=== PATIENT | female | born 1995 | race Caucasian/White ===

== ENCOUNTER 2018-11-28 09:03 | Emergency (ER) | payer SELFPAY ==
[2018-11-28 09:08] VITALS: BP 155/94; PULSE 94; TEMP 37; O2SAT 100
--- NOTE | 2018-11-28 09:20 | W.ED.GENAD ---
Discharge Plan Disposition Patient Disposition: HOME Condition: Good Discharge Details Chief Complaint: Urinary Clinical Impression: UTI (urinary tract infection), Acute ear infection Primary Care Provider: Carolyn Nobles ED Provider: Kimberly Quintana Home Meds and New Rx's Prescriptions: New Cortisporin-TC 3.3-3-10-0.5 mg/mL drops,suspension 4 drp OT TID Qty: 10 RF: 0 amoxicillin-pot clavulanate [Augmentin] 875-125 mg tablet 1 tab PO BID Qty: 10 RF: 0 phenazopyridine [Pyridium] 200 mg tablet 200 mg PO TID Qty: 6 RF: 0 No Action buprenorphine HCl 2 MG tablet, sublingual 8 mg Sublingual DAILY Qty: 1 RF: 0 Discharge Instructions Instructions: Urinary Tract Infection in Women (ED) Additional Instructions: Push fluids by mouth. Rest activities as tolerated. Use antibiotics as prescribed. Use drops into the ear as prescribed. Observe for any worsening symptoms. Repeat urine culture with your doctor for follow-up. Call for follow-up appointment with PCP. Tylenol for soreness if needed. Use Pyridium as prescribed this will stay in your urine a reddish-orange. Return for any worsening or concerns sooner if needed Medical Decision Making Patient with both urinary tract symptoms as well as left ear symptoms. Patient does report drainage from the ear yesterday however ear on exam does not have any significant wax may have been a wax plug which was removed yesterday. Mild pain with tragus tug therefore will give topical antibiotic treatment as well as oral antibiotic treatment. Patient also complaining of urinary tract symptoms urine analysis does reveal leukocyte esterase. Will treat with Augmentin to both cover urine and ear. Patient agrees a plan of care. Pyridium prescribed for comfort. Patient is not ill-appearing at this time. Urine culture pending. Encourage follow-up with PCP. HPI General Date/Time Provider Initiated Documentation: 11/28/18 09:07. HPI Narrative: Patient presents for 2 complaints. Patient complaining of left ear pain and removed a plug of what looked like wax yesterday. Patient reports persistent ear pain since. Used hydrogen peroxide to clean ear. Patient denies nasal congestion sore throat or cough. Patient denies fever chills. Patient does report mild malaise. Second complaint is urinary burning, urgency, frequency and discomfort. Patient noted onset urinary symptoms approximately 5 days ago. Denies abdominal or back pain. Denies vaginal discharge or bleeding. Denies any other concerning complaint. No difficulty pushing fluids by mouth. Related Data Home Medications Medication Instructions Recorded Confirmed buprenorphine HCl 8 mg SUBLINGUAL DAILY #1 tab NS 10/31/12 11/28/18 amoxicillin-pot clavulanate 1 tab PO BID #10 tab 11/28/18 [Augmentin] [id number]-gagtwl-[id number]-thonzonium 4 drp OT TID #10 ml 11/28/18 [Cortisporin-TC] phenazopyridine [Pyridium] 200 mg PO TID #6 tab 11/28/18 Previous Rx's Medication Instructions Recorded amoxicillin-pot clavulanate 1 tab PO BID #10 tab 11/28/18 [Augmentin] [id number]-fhohlb-SL-thonzonium 4 drp OT TID #10 ml 11/28/18 [Cortisporin-TC] phenazopyridine [Pyridium] 200 mg PO TID #6 tab 11/28/18 Allergies Allergy/AdvReac Type Severity Reaction Status Date / Time No Known Allergies Allergy Unverified 11/28/18 09:12 General Stated Complaint: GenMedical BYRON: 4 Review of Systems Review of Systems Narrative: CONSTITUTIONAL: The patient denies fevers, chills. EYES: Denies vision changes, blurry vision, or eye pain. ENT: Denies hearing changes, tinnitus, vertigo, sore throat. CARDIAC: Denies chest pain, SOB. RESPIRATORY: Denies cough, sputum. Denies difficulty breathing. GASTROINTESTINAL: Denies abdominal pain, changes in bowel, vomiting or nausea. GENITOURINARY: Dysuria, urgency and frequency. Denies hematuria.. MUSCULOSKELETAL: Denies Joint pain, gait changes. NEUROLOGIC: Denies headaches, Denies focal weakness. Denies numbness. INTEGUMENT: Denies rashes. PSYCHIATRIC: Denies behavior changes. Denies anxiety or depression. ENDOCRINOLOGY: Denies fatigue. PSYCHIATRY: Denies depression, agitation or anxiety [facility] Social History Smoking/Tobacco Use Status: Current every day Tobacco Type: cigarettes Drug use: Current Sobriety Substance use type: does not use and former substance user Do you feel safe at home: Yes Do you feel safe in your relationship?: Yes Exam Narrative Exam Narrative: CONST: Healthy appearing patient, in no acute distress. Well hydrated. Alert and alert. HENMT: Head nomocephalic, normal to inspection. Atraumatic. Hearing grossly normal. Patient with mild pain with tragus tug. Mild erythema in the canal. TM with erythema inferiorly. No significant bulging. EYES: General normal appearance. Alignment normal. Eyelids normal. Conjunctiva normal. NECK: Normal visual inspection. FROM. Trachea midline. No Midline tenderness. CHEST: Normal insepection of the chest. RESP: Normal respiratory effort. Speaking full sentences. No cough. No audible wheezing. No retractions. CARDIO: No JVD. Abdomen; no abdominal pain with palpation. No rebound or guarding. Back; No CVA tenderness MUSCULOSKELETAL: Normal Gait. FROM of all extremities. SKIN: Normal. Dry. No rashes. NEURO: Alert and awake. Speech clear. PSYCH: Normal affect. Cooperative. Course Vital Signs Vital signs: Vital Signs Temperature 37.0 C 11/28/18 09:08 Pulse 94 H 11/28/18 09:08 Blood Pressure 155/94 H 11/28/18 09:08 Pulse Oximetry 100 11/28/18 09:08 Temperature 37.0 C 11/28/18 09:08 Temperature Source Skin 11/28/18 09:08 Pulse 94 H 11/28/18 09:08 Respiratory Effort Non-Labored 11/28/18 09:10 Blood Pressure 155/94 H 11/28/18 09:08 Blood Pressure Position Sitting 11/28/18 09:08 Pulse Oximetry 100 11/28/18 09:08 Oxygen Delivery Method Room Air 11/28/18 09:08 Oxygen Flow Rate 0 11/28/18 09:08
[2018-11-28 09:31] LABS: Bilirubin Negative (Negative); Blood Moderate (Negative); Glucose Negative (Negative); Ketones Negative (Negative); Leukocyte Esterase Large (Negative); Nitrite Negative (Negative); Specific Gravity 1.015 (1.005-1.025); Urobilinogen 0.2 EU/dL (Up TO 0.2)
[2018-11-28 09:33] LABS: Clarity Cloudy (Clear)
[2018-11-28 09:42] LABS: Bacteria Moderate HPF (Negative); C & S Indicated? Yes; Casts Negative LPF (Negative); Crystals Negative HPF (Negative); Epithelial Cells Moderate HPF (Negative); Mucus Negative (Negative); WBC >50 HPF (0-5)
[2018-11-28 10:33] VITALS: BP 155/94; PULSE 94; RESP 16; TEMP 37; O2SAT 100
== END 2018-11-28 10:30 | disposition home or self-care (01) ==
PROVIDERS: Emergency Provider Physician Assistant; PCP Family Medicine
DX: N39.0 Urinary tract infection, site not specified (principal); H66.92 Otitis media, unspecified, left ear; H60.502 Unspecified acute noninfective otitis externa, left ear
CPT/HCPCS: 81025; 87077; 99283; 81003; 81015; 87086; 87186

== ENCOUNTER 2020-06-29 16:51 | Emergency (ER) | payer MEDICAID, SELFPAY ==
[2020-06-29 17:00] VITALS: BP 150/93; PULSE 100; RESP 16; TEMP 36.7; O2SAT 100
--- NOTE | 2020-06-29 17:29 | ED.GENADUL_ITS ---
Discharge Plan Disposition Patient Disposition: HOME Condition: Stable Discharge Details Clinical Impression: COVID-19 Primary Care Provider: Clayton Jeff ED Provider: [place] Home Meds and New Rx's Prescriptions: Continued buprenorphine HCl 2 MG tablet, sublingual 8 mg Sublingual DAILY Qty: 1 RF: 0 labetalol 100 mg tablet 100 mg PO DAILY RF: 0 Discharge Instructions Instructions: Pulse Oximetry (ED), COVID-19 (Coronavirus Disease 2019) (ED) Additional Instructions: At this time your vital signs are stable and your work-up including both blood work and chest x-ray are unremarkable. I am providing you with a pulse oximeter to use at home, I do recommend getting reevaluated if your level drops below 90. Plenty of rest, stay adequately hydrated, and [id number] medications as directed for symptomatic control. Continue quarantining as you have been doing to avoid transmission of the viral syndrome. I do recommend reaching out your primary care provider tomorrow to discuss your ongoing symptoms and ER visit, they will likely not want you to go directly to the office. Discharge Data Discharge Date/Time-TO BE ENTERED AT DEPARTURE: 06/29/20 19:25 Medical Decision Making This is a 24-year-old female who was diagnosed with Covid 10 days ago, reports over the past few days she feels as though her shortness of breath and dry cough is worsening. Clinically she appears well, nontoxic. Heart rate in triage was 100 but during my evaluation her heart rate was in the 80s. Lungs are clear to auscultation and her O2 sats are 100% on room air. Given we know she has Covid, I do believe obtaining screening laboratory such as CBC, CMP, a single troponin, D-dimer and EKG is all reasonable. Extremely low suspicion for ACS. Certainly need to rule out PE although clinically I believe this to be low suspicion as well. Patient is agreeable to this plan. Laboratory does reveal minimal leukopenia at 3.25 otherwise laboratory values are unremarkable, D-dimer 432, troponin less than 0.05. Will not pursue PE study. Chest x-ray read by me and confirmed by radiology as negative. Discussed work-up and evaluation with patient. She is relieved. Patient does not fit criteria for monoclonal antibodies. She will be given a pulse ox to go home with, will monitor her oxygen level and return if her oxygen levels are below 90. She will continue with [id number] medications, adequate rest and hydration. Patient is comfortable with this plan and has no additional questions or concerns. She will continue to quarantine. Additionally she will contact her primary care provider by phone tomorrow to discuss her ER visit and ongoing symptoms. Medical Records Medical records reviewed: Yes I reviewed the patient's medical records. Imaging Data Radiologic Study: Attestation: I personally reviewed and interpreted this imaging study as follows: Imaging: X-Ray Radiologist's impression: Chest x-ray negative Lab Data Lab results reviewed: Yes I reviewed the patient's lab results. Labs: Laboratory Tests Range/Units 06/29/20 06/29/20 06/29/20 17:28 17:28 17:28 WBC (4.4-10.8) 10^3/uL 3.25 L RBC (3.93-5.22) 10^6/uL 4.81 Hgb (11.2-15.7) g/dL 13.9 Hct (36.0-46.0) % 40.7 MCV (80-95) fL 84.6 MCH (27.0-33.0) pg 28.9 MCHC (32.0-36.0) % 34.2 RDW (11.7-14.6) % 11.9 Plt Count (130-400) 10^3/uL 165 MPV (8.0-11.0) fL 10.8 Immature Gran % 0.3 Neutrophils % 49.0 Lymphocytes % 41.2 Monocytes % 8.6 Eosinophils % 0.6 Basophils % 0.3 Nucleated RBC % % 0 Absolute Neutrophils (1.2-6.7) 10^3/uL 1.59 Absolute Lymphocytes (1.2-3.4) 10^3/uL 1.34 Absolute Monocytes (0.1-0.8) 10^3/uL 0.28 Absolute Eosinophils (0.0-0.7) 10^3/uL 0.02 Absolute Basophils (0.0-0.2) 10^3/uL 0.01 D-Dimer (<500) ng/mlFEU 432 Sodium (136-145) mmol/L 139 Potassium (3.5-5.1) mmol/L 4.1 Chloride (98-107) mmol/L 104 Carbon Dioxide (21.0-32.0) mmol/L 25.5 Anion Gap (3-11) mmol/L 9.5 BUN (7-18) mg/dL 15 Creatinine (0.55-1.02) mg/dL 0.8 Estimated GFR/1.73 m2 (mL/min/1.73m2) >= 60.00 Glucose (74-106) mg/dL 105 Calcium (8.5-10.1) mg/dL 8.7 Total Bilirubin (0.2-1.0) mg/dL 0.4 AST (15-37) U/L 14 L ALT (14-59) U/L 23 Alkaline Phosphatase (46-116) U/L 80 Troponin I (<0.06) ng/mL < 0.05 Total Protein (6.4-8.2) g/dL 7.5 Albumin (3.4-5.0) g/dL 4.3 ECG Data Attestation: I personally reviewed and interpreted this ECG (s) as follows: Interpretation: Please see official report by Dr. Pete. Sinus rhythm, ventricular rate of 69. No STEMI. HPI General Mode of arrival: ambulatory . Date/Time Provider Initiated Documentation: 06/29/20 17:06 . Limitations to Documentation: no limitations . Information obtained by: patient . HPI Narrative: This is a 24-year-old female, denies any significant past medical history. She reports that she was diagnosed with Covid 10 days ago. She quit smoking 7 days ago. She states that early in the course she did have a low-grade fever and some vomiting however that has both completely resolved. The rest of her family also has similar symptoms. She states over the past few days her lungs feel more heavy, associate with shortness of breath, a dry cough. Patient had a oximeter at home but is not broken so she cannot track her oxygen levels. She states that this may all be her anxiety but she simply wants to be sure that she is okay. Denies any headache, current fever, neck pain, chest pain, back pain, abdominal pain, current nausea or vomiting, change in bowel or bladder function, pain or swelling her legs. Denies past medical history of DVT or PE. Related Data Home Medications Medication Instructions Recorded Confirmed buprenorphine HCl 8 mg SUBLINGUAL DAILY #1 tab NS 10/31/12 06/29/20 labetalol 100 mg PO DAILY 06/29/20 06/29/20 Allergies Allergy/AdvReac Type Severity Reaction Status Date / Time No Known Allergies Allergy Unverified 06/29/20 17:03 General Stated Complaint: RespSymp BYRON: 3 Review of Systems Constitutional Constitutional: Reports fatigue, Reports fever(s) (Not currently, earlier in the week) and Denies headache(s) ENT Ears, Nose, Mouth, and Throat: Denies headache(s), Denies neck pain and Denies sore throat Cardiovascular Cardiovascular: Denies chest pain and Reports dyspnea Respiratory Respiratory: Reports cough (Mild, dry) and Reports dyspnea Gastrointestinal Gastrointestinal: Denies abdominal pain, Reports nausea (Intermittently) and Reports vomiting (Earlier in the week, not currently) Genitourinary Genitourinary: Denies dysuria Musculoskeletal Musculoskeletal: Denies neck pain Integumentary/Breasts Skin/Breast: Denies rash Neurologic Neurologic: Denies headache(s) Endocrine Endocrine: Reports fatigue [facility] Social History Smoking/Tobacco Use Status: Former Tobacco Use Smoking risk assessment performed?: Yes Drug use: Current Sobriety Substance use type: does not use and former substance user Do you feel safe at home: Yes Do you feel safe in your relationship?: Yes Exam Const General: cooperative, healthy appearing, comfortable and no acute distress Orientation: alert, awake and oriented x3 HENMT Head: normal to inspection, normocephalic and atraumatic General nose exam: external nose normal Face and sinus: normal facial exam Mouth: moist mucous membranes Throat: posterior oropharynx normal Eyes General: appearance normal, both eyes and all related structures Conjunctivae: conjunctivae normal Neck Neck: normal visual inspection, full ROM, no meningeal signs, trachea midline and supple Resp Effort & Inspection: normal respiratory effort and able to speak in complete sentences Auscultation: clear to auscultation bilaterally Cardio Rate: regular rate Rhythm: regular rhythm GI Inspection: normal to inspection Palpation: soft and nontender Back/Spine/Pelvis Back: No back tenderness Skin General skin exam: no rashes or lesions noted Neuro General: patient alert, patient awake, moves all extremities and no focal motor deficits Cognition: normal cognition Speech: speech normal Gait: normal gait Motor: muscle tone normal throughout Sensory Exam: no sensory deficits noted Extrem General: normal to inspection, full ROM, capillary refill normal, no pedal edema and no calf tenderness Psych Appearance: grossly normal Mental Status: mental status grossly normal Course Vital Signs Vital signs: Vital Signs Temperature 36.7 C 06/29/20 17:00 Pulse 100 H 06/29/20 17:00 Respiratory Rate 16 06/29/20 17:00 Blood Pressure 150/93 H 06/29/20 17:00 Pulse Oximetry 100 06/29/20 17:00 Temperature 36.7 C 06/29/20 17:00 Temperature Source Skin 06/29/20 17:00 Pulse 100 H 06/29/20 17:00 Respiratory Rate 16 06/29/20 17:00 Respiratory Effort 06/29/20 17:03 Blood Pressure 150/93 H 06/29/20 17:00 Blood Pressure Position Sitting 06/29/20 17:00 Pulse Oximetry 100 06/29/20 17:00 Oxygen Delivery Method Room Air 06/29/20 17:00 Oxygen Flow Rate 0 06/29/20 17:00 Pain Level 0 06/29/20 17:00
[2020-06-29 17:38] LABS: Abs Immature Grans 0.01 10^3/uL (0.0-0.06); Absolute Basophil Count 0.01 10^3/uL (0.0-0.2); Absolute Eosinophil Count 0.02 10^3/uL (0.0-0.7); Absolute Lymphocyte Count 1.34 10^3/uL (1.2-3.4); Absolute Monocyte Count 0.28 10^3/uL (0.1-0.8); Absolute Neutrophil Count 1.59 10^3/uL (1.2-6.7); Basophils % 0.3; Eosinophils % 0.6; HCT 40.7 % (36.0-46.0); HGB 13.9 g/dL (11.2-15.7); Immature Grans % 0.3; Lymphocytes % 41.2; MCH 28.9 pg (27.0-33.0); MCHC 34.2 % (32.0-36.0); MCV 84.6 fL (80-95); MPV 10.8 fL (8.0-11.0); Monocytes % 8.6; Nucleated RBC 0 %; Platelet Count 165 10^3/uL (130-400); RBC 4.81 10^6/uL (3.93-5.22); RDW 11.9 % (11.7-14.6); RDW-SD 36.4 fL; WBC 3.25 10^3/uL (4.4-10.8)
--- NOTE | 2020-06-29 17:45 | RT.EKG_ITS ---
APPROVED REPORT Exam: Resting ECG Patient Location: E HR:69 bpm ECG Measurements Heart Rate 69 AXIS OR 125 P 75 QRSd 71 QRS 73 QT 389 T 28 QTc 418 Conclusion Sinus rhythm...normal P axis, V-rate 60- 99
[2020-06-29 17:56] LABS: ALT 23 U/L (14-59); AST 14 U/L (15-37); Albumin 4.3 g/dL (3.4-5.0); Alkaline Phosphatase 80 U/L (46-116); Anion Gap 9.5 mmol/L (3-11); BUN 15 mg/dL (7-18); Bilirubin, Total 0.4 mg/dL (0.2-1.0); CO2 25.5 mmol/L (21.0-32.0); CREATININE 0.8 mg/dL (0.55-1.02); Calcium 8.7 mg/dL (8.5-10.1); Chloride 104 mmol/L (98-107); Glucose 105 mg/dL (74-106); Potassium 4.1 mmol/L (3.5-5.1); Sodium 139 mmol/L (136-145); Total Protein 7.5 g/dL (6.4-8.2)
[2020-06-29 17:57] LABS: Troponin I < 0.05 ng/mL (<0.06)
[2020-06-29 18:16] LABS: D-Dimer 432 ng/mlFEU (<500)
--- NOTE | 2020-06-29 18:54 | DI.RAD_ITS ---
EXAM: XR PORTABLE CHEST AP CLINICAL HISTORY: covid +, now sob. TECHNIQUE: 2D digital imaging was performed. COMPARISON: No exams were available for comparison FINDINGS: Heart size is normal. The mediastinum is not widened. Lungs are clear. No infiltrates nor obvious pleural effusions. IMPRESSION: No acute pulmonary findings on this single AP portable view of the chest. DATA REPOSITORY: RADIATION DOSE DELIVERED: All CT scans at this facility use at least one of these dose optimization techniques: automated exposure control; mA and/or kV adjustment per patient size (includes targeted e xams where dose is matched to clinical indication); or iterative reconstruction.
--- NOTE | 2020-06-29 19:18 | DI.VRAD_ITS ---
PROCEDURE INFORMATION: Exam: XR Chest Exam date and time: 06/29/2020 5:19 PM Age: 24 years old Clinical indication: Shortness of breath TECHNIQUE: Imaging protocol: XR of the chest. Views: 1 view. COMPARISON: No relevant prior studies available. FINDINGS: Lungs: Unremarkable. No consolidation. Pleural spaces: Unremarkable. No pleural effusion. No pneumothorax. Heart/Mediastinum: Unremarkable. No cardiomegaly. Bones/joints: Unremarkable. IMPRESSION: No acute findings. Dictated and Authenticated by: Terence Paulino MD. Ordering:SAIRA Kat MD
== END 2020-06-29 19:25 | disposition home or self-care (01) ==
PROVIDERS: Emergency Provider Physician Assistant; PCP Family Medicine
DX: U07.1 COVID-19 (principal)
CPT/HCPCS: 80053; 93005; 99284; 71045; 84484; 85025; 85379; 93010; 99283

== ENCOUNTER 2021-08-08 18:46 | Emergency (ER) | payer MEDICAID, SELFPAY ==
[2021-08-08 18:54] VITALS: BP 145/89; PULSE 92; RESP 16; TEMP 37.1; O2SAT 100
[2021-08-08 18:55] VITALS: BP 133/91
--- NOTE | 2021-08-08 19:41 | W.ED.GENAD ---
Discharge Plan Disposition Patient Disposition: OTHER Condition: Stable Discharge Details Chief Complaint: GRAPHIC DESIGN MANAGER Clinical Impression: Vaginal bleeding affecting early Primary Care Provider: Clayton Jeff ED Provider: Edison Rivera Home Meds and New Rx's Prescriptions: No Action buprenorphine HCl 2 MG tablet, sublingual 8 mg Sublingual DAILY Qty: 1 labetalol 100 mg tablet 100 mg PO DAILY Label Comments: TAKE 1 TABLET BY MOUTH EVERY DAY Discharge Instructions Additional Instructions: Patient eloped before instructions and discharge paperwork to be given. Medical Decision Making 25-year-old female approximately 5 weeks gestation, , history of endometriosis, presents with lower abdominal cramping, vaginal spotting and passing small clots as well as lower back pain, had a brief episode of presyncope when she stood up and had some blood tests from her vagina, no chest pain or shortness of breath, no loss of conscious, patient is hemodynamically stable resting comfortably currently. Clinical suspicion for threatened miscarriage versus miscarriage versus must consider ectopic . Will obtain basic labs, hCG, UA, will attempt to visualize IUP with transabdominal bedside ultrasound, unfortunately we do not have in-house ultrasound, pending labs and bedside ultrasound as well as reassessment will likely set patient up to have transvaginal ultrasound performed tomorrow and give strict return precautions for any worsening symptoms. 20: 44 patient resting notably no acute distress. Hemodynamically stable. On transabdominal ultrasound I was able to see a small gestational sac questionable pole, negative FAST; nonperitoneal abdomen, on pelvic examination patient has scant old dark blood in vault. Beta-hCG approximately 1600, have called ultrasound department to see if on-call staff can come in to perform pelvic ultrasound. Consider threatened versus incomplete versus must consider ectopic . If ultrasound is unable to come in and patient remains hemodynamically stable will have patient come back first thing in the morning for pelvic ultrasound and give strict return precautions for returning beforehand if she has any worsening symptoms. Will administer RhoGAM as patient is Rh-. 21: 42 patient and her family left before lab results and RhoGAM. We have made an appointment for her to the radiology department to have an ultrasound done in the morning. During initial evaluation I counseled her extensively regarding return precautions to the emergency department specifically worsening bleeding abdominal pain distention presyncope or syncope or any other abnormal symptomatology. Radiology department will call patient in the morning HPI General Date/Time Provider Initiated Documentation: 08/08/21 18:50. HPI Narrative: 25-year-old female presents at approximately 5 weeks gestation, is , history of possible endometriosis, presents with lower abdominal cramping vaginal spotting and back discomfort over the past several hours. Did feel briefly presyncopal when she stood up and had some blood passed from her vagina. Passing small clots less than the size of a dime. 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 BYRON: 3 Review of Systems Narrative: Review of Systems Constitutional: negative Eyes: negative ENT: negative Cardiovascular: negative Respiratory: negative Gastrointestinal: Lower abdominal cramping : Vaginal bleeding Musculoskeletal: negative Skin: negative Neurologic: negative Psych: negative PFSH All Active Problems (Updated 08/08/21 @ 21:45 by Edison Rivera MD) COVID-19 (Acute) Vaginal bleeding affecting early (Acute) Social History Smoking/Tobacco Use Status: Former Tobacco Use Smoking risk assessment performed?: Yes Alcohol Intake: current Alcohol Intake frequency: holidays/special occasions only Drug use: Current Sobriety Substance use type: does not use and former substance user Do you feel safe at home: Yes Do you feel safe in your relationship?: Yes Exam Narrative Exam Narrative: Physical Examination General: alert, awake, cooperative, resting comfortably, no acute distress HEENT: normocephalic, atraumatic; PERRL, EOM intact, conjunctiva normal; no nasal discharge; moist mucous membranes, oral and pharyngeal mucosa normal, tolerating secretions Neck: supple, trachea midline; full ROM Chest: normal to inspection Respiratory: normal respiratory effort, speaking in full sentences, clear to auscultation, no wheezing, rales or rhonchi Cardiac: regular rate, regular rhythm, S1S2 intact, no murmurs rubs or gallops GI: abdomen soft, non-tender, non-distended; no palpable mass or hepatosplenomegaly : Skin: no lesions, rashes or trauma appreciated Neuro: AAOx3, normal speech, moving all extremities Psych: Appropriate mood and affect Course Vital Signs Vital signs: Vital Signs Temperature 37.1 C 08/08/21 18:54 Pulse 92 H 08/08/21 18:54 Respiratory Rate 16 08/08/21 18:54 Blood Pressure 145/89 H 08/08/21 18:54 Pulse Oximetry 100 08/08/21 18:54 Temperature 37.1 C 08/08/21 18:54 Temperature Source Oral 08/08/21 18:54 Pulse 92 H 08/08/21 18:54 Respiratory Rate 16 08/08/21 18:54 Respiratory Effort Non-Labored 08/08/21 18:58 Blood Pressure 133/91 H 08/08/21 18:55 Pulse Oximetry 100 08/08/21 18:54 Pain Level 4 08/08/21 18:58
[2021-08-08 19:48] LABS: Abs Immature Grans 0.01 10^3/uL (0.0-0.06); Absolute Basophil Count 0.04 10^3/uL (0.0-0.2); Absolute Eosinophil Count 0.07 10^3/uL (0.0-0.7); Absolute Lymphocyte Count 1.26 10^3/uL (1.2-3.4); Absolute Monocyte Count 0.36 10^3/uL (0.1-0.8); Absolute Neutrophil Count 4.24 10^3/uL (1.2-6.7); Basophils % 0.7; Eosinophils % 1.2; HCT 38.9 % (36.0-46.0); HGB 13.4 g/dL (11.2-15.7); Immature Grans % 0.2; Lymphocytes % 21.1; MCH 28.9 pg (27.0-33.0); MCHC 34.4 % (32.0-36.0); MCV 84 fL (80-95); MPV 10.7 fL (8.0-11.0); Neutrophils % 70.8; Platelet Count 248 10^3/uL (130-400); RBC 4.63 10^6/uL (3.93-5.22); RDW-SD 36.2 fL; WBC 5.98 10^3/uL (4.4-10.8)
[2021-08-08 20:04] LABS: Bilirubin Negative (Negative); Blood Moderate (Negative); Clarity Clear (Clear); Glucose Negative (Negative); Ketones Negative (Negative); Leukocyte Esterase Negative (Negative); Nitrite Negative (Negative); Urobilinogen 0.2 EU/dL (Up TO 0.2)
[2021-08-08 20:13] LABS: Bacteria Negative HPF (Negative); C & S Indicated? No; Crystals Negative HPF (Negative); Epithelial Cells Few HPF (Negative); Mucus Negative (Negative); RBC 0-2 HPF (0-2); WBC Negative HPF (0-5)
[2021-08-08 20:26] LABS: ALT 16 U/L (14-59); AST 10 U/L (15-37); Albumin 4.2 g/dL (3.4-5.0); Alkaline Phosphatase 80 U/L (46-116); Anion Gap 8.5 mmol/L (3-11); BUN 13 mg/dL (7-18); Bilirubin, Total 0.5 mg/dL (0.2-1.0); CO2 26.5 mmol/L (21.0-32.0); Calcium 8.5 mg/dL (8.5-10.1); Chloride 103 mmol/L (98-107); Glucose 135 mg/dL (74-106); Potassium 3.7 mmol/L (3.5-5.1); Sodium 138 mmol/L (136-145); Total Protein 7.3 g/dL (6.4-8.2)
[2021-08-08 20:28] LABS: HCG Quant, Pregnancy 1639 mIU/mL (1-3)
[2021-08-08 20:50] VITALS: BP 141/97; PULSE 79; RESP 16; O2SAT 99
== END 2021-08-08 21:50 | disposition other institution (70) ==
PROVIDERS: Emergency Provider Emergency Medicine; PCP Family Medicine
DX: O20.8 Other hemorrhage in early pregnancy (principal); Z3A.01 Less than 8 weeks gestation of pregnancy
CPT/HCPCS: 36415; 80053; 86850; 86900; 86901; 99283; 81003; 81015; 84702; 85025

== ENCOUNTER 2021-10-31 15:57 | Outpatient (REF) | payer MEDICAID, SELFPAY ==
[2021-10-31 19:33] LABS: HCT 37.1 % (36.0-46.0); HGB 12.7 g/dL (11.2-15.7); MCH 28.7 pg (27.0-33.0); MCHC 34.2 % (32.0-36.0); MCV 84 fL (80-95); MPV 11.1 fL (8.0-11.0); Platelet Count 252 10^3/uL (130-400); RBC 4.42 10^6/uL (3.93-5.22); RDW 11.9 % (11.7-14.6); RDW-SD 36.5 fL; WBC 3.82 10^3/uL (4.4-10.8)
[2021-10-31 19:40] LABS: Anion Gap 7.6 mmol/L (3-11); BUN 13 mg/dL (7-18); CO2 27.4 mmol/L (21.0-32.0); CREATININE 0.9 mg/dL (0.55-1.02); Calcium 8.5 mg/dL (8.5-10.1); Chloride 106 mmol/L (98-107); Glucose 86 mg/dL (74-106); Sodium 141 mmol/L (136-145)
[2021-11-01 17:43] LABS: Albumin ug/mg Crea 5 (<30); Albumin, Ur 0.9 mg/dL (See Note); Creatinine, Ur 180.4 mg/dL (See Note)
== END 2021-10-31 15:58 | disposition home or self-care (01) ==
LOC: NCHCN 15:57
PROVIDERS: PCP Family Medicine; Visit Provider Family Medicine
DX: I10 Essential (primary) hypertension (principal)
CPT/HCPCS: 80048; 85027; 82043; 82570

== ENCOUNTER 2022-10-19 14:56 | Emergency (ER) | payer MEDICAID, SELFPAY ==
[2022-10-19 15:02] VITALS: BP 149/94; PULSE 85; RESP 16; O2SAT 98
[2022-10-19 15:06] VITALS: TEMP 37.1
--- NOTE | 2022-10-19 15:42 | ED.GENADUL_ITS ---
Discharge Plan Disposition Patient Disposition: Home Condition: Stable Discharge Details Clinical Impression: Toothache Primary Care Provider: Clayton Jeff ED Provider: Marsha Cary Home Meds and New Rx's Prescriptions: New amoxicillin-pot clavulanate 875-125 mg tablet 1 tab PO BID 10 Days Qty: 20 0RF Rx Instructions: Take 1 tablet twice daily by mouth x 10 days. No Action buprenorphine HCl 2 MG tablet, sublingual 8 mg Sublingual DAILY Qty: 1 Patient Comments: pt states not taking 10/19/22 labetalol 100 mg tablet 100 mg PO DAILY Patient Comments: pt states not taking 10/19/22 Discharge Instructions Instructions: Toothache (ED) Additional Instructions: Please follow-up with a dentist. Please take Tylenol or Ibuprofen with food every 4-6 hours as needed for pain and swelling. Take the antibiotic twice daily with yogurt or probiotic as directed. Use the HurriCaine gel as directed. Follow up with dentist/primary care provider in 3-5 days. Return to ED sooner if any worsening or concerns. Increase oral fluids. Referrals: Clayton Jeff [Primary Care Provider] - Return if symptoms worsen Discharge Data Discharge Date/Time-TO BE ENTERED AT DEPARTURE: 10/19/22 16:40 Medical Decision Making 27-year-old female presents to the ER accompanied with her family with a chief complaint of upper left dental pain. She does have an upcoming dental appointment on November 07, she reports this has been worse over the last 4 days. She is here for an antibiotic. She does have a broken tooth noted to #12, some surrounding gingival edema no fluctuance no abscess no drainage noted. She has been taking Tylenol ibuprofen with little to no relief. Augmentin and HurriCaine gel ordered. Patient discharged with dental resources and instructions to follow-up with dentist will give patient Augmentin. This text was generated using [employer] dictation system, please disregard any oddities of phrase or misspellings. HPI General Mode of arrival: ambulatory . Date/Time Provider Initiated Documentation: 10/19/22 15:07 . Limitations to Documentation: no limitations . Information obtained by: patient, RN notes reviewed and old records reviewed . HPI Narrative: 27-year-old female presents to the ER accompanied with her family with a chief complaint of upper left dental pain. She does have an upcoming dental appointment on November 07, she reports this has been worse over the last 4 days. She is here for an antibiotic. She does have a broken tooth noted to #12, some surrounding gingival edema no fluctuance no abscess no drainage noted. She has been taking Tylenol ibuprofen with little to no relief. Related Data Home Medications Medication Instructions Recorded Confirmed buprenorphine HCl 2 mg sublingual 8 mg sublingual DAILY #1 tab 10/31/12 08/08/21 tablet labetalol 100 mg tablet 100 mg PO DAILY 06/29/20 08/08/21 amoxicillin 875 mg-potassium 1 tab PO BID Tooth infection 10 10/19/22 clavulanate 125 mg tablet days #20 tabs Previous Rx's Medication Instructions Recorded amoxicillin 875 mg-potassium 1 tab PO BID Tooth infection 10 10/19/22 clavulanate 125 mg tablet days #20 tabs Allergies Allergy/AdvReac Type Severity Reaction Status Date / Time No Known Allergies Allergy Unverified 10/19/22 15:07 General Stated Complaint: DentalOral BYRON: 4 Review of Systems All systems reviewed & are unremarkable except as noted in HPI and below ENT Ears, Nose, Mouth, and Throat: Reports as per HPI and Reports dental pain PFSH All Active Problems (Updated 10/19/22 @ 16:05 by Marsha Cary NP) COVID-19 (Acute) Toothache (Acute) Social History Smoking/Tobacco Use Status: Former Tobacco Use Smoking risk assessment performed?: Yes Alcohol Intake: current Alcohol Intake frequency: holidays/special occasions only Drug use: Current Sobriety Substance use type: does not use and former substance user Do you feel safe at home: Yes Do you feel safe in your relationship?: Yes Exam Narrative Exam Narrative: Constitutional: Alert and oriented x3. Appears stated age. Normal body habitus. Head: Normocephalic, no trauma. Eyes: Pupils PERRL, Red reflex noted, EOM's intact. Eyelids symmetrical without lesions, discharge, or swelling. ENT: Bilateral TM's WNL, External ear normal to inspection, no mastoid TTP, swelling, or erythema, Nasal turbinates WNL, no nasal discharge. Normal dentition, Posterior pharynx WNL, no exudate. She does have a broken tooth at #13, no abscess noted. Chest: RRR, Normal S1, S2, distal pulses intact. Resp: Lungs clear to auscultation bilaterally, no wheezes, rales, or rhonchi. Musculoskeletal: Normal gait, 5/5 strength to all four extremities. Skin: No suspicious rashes or lesions. Capillary refill less than 2 sec. Neurologic: Cranial nerves II-XII intact. Alert and oriented x 3. Motor: No deficits noted. Hematologic/Lymphatic: No ecchymosis, no lymphadenopathy. Course Vital Signs Vital signs: Vital Signs Pulse 85 10/19/22 15:02 Respiratory Rate 16 10/19/22 15:02 Blood Pressure 149/94 H 10/19/22 15:02 Pulse Oximetry 98 10/19/22 15:02 Temperature 37.1 C 10/19/22 15:06 Temperature Source Skin 10/19/22 15:06 Pulse 85 10/19/22 15:02 Respiratory Rate 16 10/19/22 15:02 Respiratory Effort Normal 10/19/22 15:06 Blood Pressure 149/94 H 10/19/22 15:02 Blood Pressure Position Sitting 10/19/22 15:02 Pulse Oximetry 98 10/19/22 15:02 Oxygen Delivery Method Room Air 10/19/22 15:02 Oxygen Flow Rate 0 10/19/22 15:02 Pain Level 5 10/19/22 15:16
[2022-10-19] MEDS: Benzocaine 20% Gel 30 GM JAR MM (16:04)
[2022-10-19] MEDS: Amoxicillin 875/Clav. 125 TAB PO (16:04)
[2022-10-19 16:41] VITALS: BP 132/84; PULSE 86; RESP 18; O2SAT 97
== END 2022-10-19 16:40 | disposition home or self-care (01) ==
PROVIDERS: Emergency Provider Registered Nurse Emergency; PCP Family Medicine
DX: K08.89 Other specified disorders of teeth and supporting structures (principal); S02.5XXA Fracture of tooth (traumatic), initial encounter for closed fracture; X58.XXXA Exposure to other specified factors, initial encounter
CPT/HCPCS: 99283; 99282

== ENCOUNTER 2024-06-13 12:09 | Outpatient (REF) | payer MEDICAID, SELFPAY ==
[2024-06-13 15:45] LABS: Anion Gap 7.2 mmol/L (3-11); BUN 12 mg/dL (7-18); CO2 28.8 mmol/L (21.0-32.0); CREATININE 0.8 mg/dL (0.55-1.02); Calcium 8.9 mg/dL (8.5-10.1); Chloride 104 mmol/L (98-107); Estimated GFR 101.59 (mL/min/1.73m2); Glucose 91 mg/dL (74-106); Potassium 4.1 mmol/L (3.5-5.1); Sodium 140 mmol/L (136-145)
== END 2024-06-13 12:10 | disposition home or self-care (01) ==
LOC: NCHCN 12:09
PROVIDERS: PCP Family Medicine; Visit Provider Family Medicine
DX: I10 Essential (primary) hypertension (principal)
CPT/HCPCS: 80048